=== PATIENT | male | born 1985 | race Caucasian/White ===

== ENCOUNTER 2020-05-05 00:43 | Emergency (ER) | payer OTHER ==
[2020-05-05 01:43] LABS: Absolute Lymphocytes (CBC) 4.6 K/uL (0.7-4.9); Basophils % 0.8 % (0-1.3); Lymphocytes % 34.2 % (15.3-44.8); MPV 9.9 fL (7.6-11.3)
[2020-05-05] MEDS ORDERED: KETOROLAC 30 MG/ML INJ ONE (01:56)
[2020-05-05 02:01] LABS: ALT/SGPT 74 U/L (12-78); AST/SGOT 93 U/L (15-37); Albumin 3.9 g/dL (3.4-5.0); Alkaline Phosphatase 77 U/L (45-117); BUN Blood Urea Nitrogen 13 mg/dL (7-18); Bicarbonate 27 mmol/L (21-32); Bilirubin Direct 0.1 mg/dL (0-0.2); Bilirubin Total 0.2 mg/dL (0.2-1.0); Glucose Level 96 mg/dL (74-106); Magnesium 2.2 mg/dL (1.8-2.4); NT PRO-BNP 9 pg/mL (<125); Potassium 3.3 mmol/L (3.5-5.1); Protein, Total 7.8 g/dL (6.4-8.2); Sodium Level 142 mmol/L (136-145); Troponin (Emerg Dept Use Only) < 0.02 ng/mL (0.0-0.045)
[2020-05-05 02:33] LABS: Barbiturates NEGATIVE (NEGATIVE); Benzodiazepines NEGATIVE (NEGATIVE); Cocaine NEGATIVE (NEGATIVE); METHAMPHETAM NEGATIVE (NEGATIVE); Methadone NEGATIVE (NEGATIVE); Opiates NEGATIVE (NEGATIVE); Phencyclidine NEGATIVE (NEGATIVE); THC Cannibis POSITIVE (NEGATIVE)
--- NOTE | 2020-05-05 02:54 | ER ---
Nurse's Notes [facility] Name: Nehemiah Ling Age: 34 yrs Sex: Male : 1985 Arrival Date: 05/05/2020 Time: 00:52 Bed 13 Private MD: Diagnosis: Dyspnea;Other chest pain Presentation: 05/05 00:52 Chief complaint: Patient states: about 15 to 20 mins ago he started having back pain bb which radiated to his chest and now he is having difficulty breathing. Coronavirus screen: At this time, the client does not indicate any symptoms associated with coronavirus-19. Ebola Screen: No symptoms or risks identified at this time. Initial Sepsis Screen: Does the patient meet any 2 criteria? No. Patient's initial sepsis screen is negative. Does the patient have a suspected source of infection? No. Patient's initial sepsis screen is negative. Risk Assessment: Do you want to hurt yourself or someone else? Patient reports no desire to harm self or others. Onset of symptoms was May 05, 2020. 00:52 Method Of Arrival: Ambulatory bb 00:52 Acuity: LANEY 3 bb Triage Assessment: 01:00 General: Appears in no apparent distress. uncomfortable, Behavior is calm, cooperative, vc appropriate for age. Respiratory: Reports shortness of breath at rest the patient has mild shortness of breath. Historical: - Allergies: 00:54 No Known Allergies; bb - Home Meds: 00:54 sertraline oral oral [Active]; bb - PMHx: 00:54 Anxiety; bb - PSHx: 00:54 Knee surgery; bb - Immunization history:: Adult Immunizations up to date. - Social history:: Smoking status: Patient denies any tobacco usage or history of. Patient uses alcohol, occasionally. street drugs, cocaine, LSD, marijuana. Screenin:00 Abuse screen: Denies threats or abuse. Nutritional screening: No deficits noted. vc Tuberculosis screening: No symptoms or risk factors identified. Fall Risk None identified. Assessment: 01:00 Pain: Complains of pain in chest Pain does not radiate. Pain currently is 10 out of 10 vc on a pain scale. Quality of pain is described as sharp, stabbing, Pain began suddenly, Is continuous, Alleviated by medications. Neuro: Level of Consciousness is awake, alert, obeys commands, Oriented to person, place, time, situation, Appropriate for age. Cardiovascular: Rhythm is sinus rhythm. Respiratory: Airway is patent Respiratory effort is even, unlabored, Breath sounds are clear. GI: No signs and/or symptoms were reported involving the gastrointestinal system. : No signs and/or symptoms were reported regarding the genitourinary system. Derm: Skin is intact, is healthy with good turgor, Skin temperature is warm. Musculoskeletal: Circulation, motion, and sensation intact. Range of motion: intact in all extremities. 02:32 Reassessment: Patient states the pain is still there but is better. vc 03:00 Reassessment: Patient and/or family updated on plan of care and expected duration. Pain vc level reassessed. Patient is alert, oriented x 3, equal unlabored respirations, skin warm/dry/pink. Patient states symptoms have improved. Vital Signs: 00:52 BP 132 / 82; Pulse 74; Resp 16 S; Temp 98.2(O); Pulse Ox 100% on R/A; Weight 102.97 kg bb (R); Height 6 ft. 3 in. (190.50 cm) (R); Pain 10/10; 02:00 BP 116 / 79; Pulse 74; Resp 16; Pulse Ox 96% on R/A; vc 03:00 BP 110 / 64; Pulse 72; Resp 17; Pulse Ox 96% on R/A; vc 00:52 Body Mass Index 28.37 (102.97 kg, 190.50 cm) bb ED Course: 00:52 Patient arrived in ED. bp1 00:54 Triage completed. bb 00:54 Arm band placed on Patient placed in an exam room, on a stretcher, on pulse oximetry. bb EKG completed in triage. Results shown to MD. 01:00 Patient has correct armband on for positive identification. Bed in low position. vc curve saw operator on. Pulse ox on. NIBP on. 01:10 Bernarda Hadley RN is Primary Nurse. vc 01:35 Justin Dee MD is Attending Physician. tw4 01:45 XRAY Chest (1 view) In Process Unspecified. EDMS 03:22 No provider procedures requiring assistance completed. IV discontinued, intact, vc bleeding controlled, No redness/swelling at site. Pressure dressing applied. Administered Medications: 01:45 Drug: TORadol 30 mg Route: IVP; Site: right antecubital; vc 02:06 Follow up: Response: No adverse reaction; Pain is decreased vc Outcome: 02:53 Discharge ordered by MD. briceno 03:23 Discharged to home ambulatory. vc 03:23 Condition: improved 03:23 Discharge instructions given to patient, family, Instructed on discharge instructions, follow up and referral plans. Demonstrated understanding of instructions, follow-up care. 03:24 Patient left the ED. vc Signatures: Dispatcher [employer] Analy [place] RN RN bb Wadley, Terrence, MD MD tw4 Bernarda Hadley RN RN vc [place], Brittany [facility]
--- NOTE | 2020-05-05 02:54 | EDPHYS ---
Physician Documentation [facility] Name: Nehemiah Ling Age: 34 yrs Sex: Male : 1985 Arrival Date: 05/05/2020 Time: 00:52 Bed 13 Private MD: ED Physician Justin Dee HPI: 05/05 05:15 This 34 yrs old Male presents to ER via Ambulatory with complaints of tw4 Breathing Difficulty. 05:15 The patient has shortness of breath at rest. Onset: The symptoms/episode began/occurred tw4 today. Duration: The symptoms are continuous, and are unchanged since they started. The patient's shortness of breath has no apparent modifying factors. Associated signs and symptoms: Pertinent positives: chest pain. Severity of symptoms: in the emergency department the symptoms are unchanged. The patient has not experienced similar symptoms in the past. Historical: - Allergies: 00:54 No Known Allergies; bb - Home Meds: 00:54 sertraline oral oral [Active]; bb - PMHx: 00:54 Anxiety; bb - PSHx: 00:54 Knee surgery; bb - Immunization history:: Adult Immunizations up to date. - Social history:: Smoking status: Patient denies any tobacco usage or history of. Patient uses alcohol, occasionally. street drugs, cocaine, LSD, marijuana. ROS: 05:15 Constitutional: Negative for fever, chills, and weight loss, Eyes: Negative for injury, tw4 pain, redness, and discharge, Abdomen/GI: Negative for abdominal pain, nausea, vomiting, diarrhea, and constipation, Back: Negative for injury and pain, MS/Extremity: Negative for injury and deformity, Skin: Negative for injury, rash, and discoloration. 05:15 Cardiovascular: Positive for chest pain, Negative for edema, orthopnea, palpitations. 05:15 Respiratory: Positive for shortness of breath, Negative for cough, dyspnea on exertion, hemoptysis, orthopnea, pleurisy. Exam: 05:15 Constitutional: This is a well developed, well nourished patient who is awake, alert, tw4 and in no acute distress. Head/Face: Normocephalic, atraumatic. Chest/axilla: Normal chest wall appearance and motion. Nontender with no deformity. No lesions are appreciated. Cardiovascular: Regular rate and rhythm with a normal S1 and S2. No gallops, murmurs, or rubs. Normal PMI, no JVD. No pulse deficits. Respiratory: Lungs have equal breath sounds bilaterally, clear to auscultation and percussion. No rales, rhonchi or wheezes noted. No increased work of breathing, no retractions or nasal flaring. Abdomen/GI: Soft, non-tender, with normal bowel sounds. No distension or tympany. No guarding or rebound. No evidence of tenderness throughout. Back: No spinal tenderness. No costovertebral tenderness. Full range of motion. MS/ Extremity: Pulses equal, no cyanosis. Neurovascular intact. Full, normal range of motion. Neuro: Awake and alert, GCS 15, oriented to person, place, time, and situation. Cranial nerves II-XII grossly intact. Motor strength 5/5 in all extremities. Sensory grossly intact. Cerebellar exam normal. Normal gait. Vital Signs: 00:52 BP 132 / 82; Pulse 74; Resp 16 S; Temp 98.2(O); Pulse Ox 100% on R/A; Weight 102.97 kg bb (R); Height 6 ft. 3 in. (190.50 cm) (R); Pain 10/10; 02:00 BP 116 / 79; Pulse 74; Resp 16; Pulse Ox 96% on R/A; vc 03:00 BP 110 / 64; Pulse 72; Resp 17; Pulse Ox 96% on R/A; vc 00:52 Body Mass Index 28.37 (102.97 kg, 190.50 cm) bb MDM: 01:35 Patient medically screened. tw4 05:15 Differential diagnosis: Anemia Anxiety Reaction reactive airway disease, Sepsis. tw4 Antibiotic administration: Not indicated. Data reviewed: vital signs, nurses notes. Data interpreted: Pulse oximetry: Interpretation: normal. Counseling: I had a detailed discussion with the patient and/or guardian regarding: the historical points, exam findings, and any diagnostic results supporting the discharge/admit diagnosis, lab results. Medication response: Toradol markedly relieved the patient's pain. Response to treatment: and as a result, I will discharge patient. Special discussion: Based on the patient's history, exam, and Dx evaluation, there is no indication for emergent intervention or inpatient Tx. It is understood by the patient/guardian that if the Sx's persist or worsen they need to return immediately for re-evaluation. I discussed with the patient/guardian in detail that at this point there is no indication for admission to the hospital. It is understood, however, that if the symptoms persist or worsen the patient needs to return immediately for re-evaluation. 05/05 01:27 Order name: Basic Metabolic Panel tt3 05/05 01:27 Order name: CBC with Diff 3 05/05 01:27 Order name: LFT's 05/05 01:27 Order name: Magnesium tt3 05/05 01:27 Order name: NT PRO-BNP tt05/05 01:27 Order name: PT-INR tt3 05/05 01:27 Order name: Troponin (emerg Dept Use Only) tt3 05/05 01:27 Order name: XRAY Chest (1 view) tt3 05/05 01:27 Order name: EKG; Complete Time: 01:28 tt05/05 01:35 Order name: D-Dimer tw4 05/05 01:36 Order name: D-Dimer EDLA 05/05 01:38 Order name: UDS 4 05/05 01:27 Order name: Cardiac monitoring; Complete Time: 01:29 05/05 01:27 Order name: EKG - Nurse/Tech; Complete Time: 01:05/05 01:27 Order name: IV Saline Lock; Complete Time: 01:05/05 01:27 Order name: Labs collected and sent; Complete Time: 01:05/05 01:27 Order name: O2 Per Protocol; Complete Time: :05/05 01:27 Order name: O2 Sat Monitoring; Complete Time: : tt EC:54 Rate is 72 beats/min. Rhythm is regular. QRS [place] is Normal. MS interval is normal. QRS tw4 interval is normal. QT interval is normal. No Q waves. T waves are Normal. No ST changes noted. Clinical impression: Normal ECG. Interpreted by me. Reviewed by me. Administered Medications: 01:45 Drug: TORadol 30 mg Route: IVP; Site: right antecubital; vc 02:06 Follow up: Response: No adverse reaction; Pain is decreased vc Disposition: 05/05/20 02:53 Discharged to Home. Impression: Dyspnea, Other chest pain. - Condition is Stable. - Discharge Instructions: Nonspecific Chest Pain, Shortness of Breath. - Medication Reconciliation Form, Thank You Letter, Antibiotic Education, Prescription Opioid Use form. - Follow up: Private Physician; When: Upon discharge from the Emergency Department; Reason: Recheck today's complaints, Continuance of care, Re-evaluation by your physician. - Problem is new. - Symptoms have improved. Signatures: Dispatcher [employer] [facility] Analy Bridges RN RN bb Justin Dee MD MD tw4 Bernarda Hadley RN RN vc [place], Reji tt3 Corrections: (The following items were deleted from the chart) 01:46 01:25 Chest Pa And Lat (2 Views)+[email or web address] ordered. [facility] 03:24 02:53 05/05/2020 02:53 Discharged to Home. Impression: Dyspnea; Other chest pain. vc Condition is Stable. Forms are Medication Reconciliation Form, Thank You Letter, Antibiotic Education, Prescription Opioid Use. Follow up: Private Physician; When: Upon discharge from the Emergency Department; Reason: Recheck today's complaints, Continuance of care, Re-evaluation by your physician. Problem is new. Symptoms have improved. tw4
--- NOTE | 2020-05-05 09:19 | RAD REPORT ---
EXAM DESCRIPTION: RAD - Chest Single View - 05/05/2020 1:45 am CLINICAL HISTORY: CHEST PAIN Chest pain. COMPARISON: No comparisons FINDINGS: Portable technique limits examination quality. The lungs are grossly clear. The heart is normal in size. No displaced fractures. IMPRESSION: No acute intrathoracic process suspected.
[2020-05-06 06:45] VITALS: TEMP 98.2
[2020-05-06 06:47] VITALS: O2SAT 96
[2020-05-06 06:48] VITALS: BP 110/64
--- NOTE | 2020-05-08 20:05 | EKG ---
Test Date: 2020-05-05 Test Time: 00:50:04 Heeler: MEASUREMENT RESULTS: Intervals: Rate: 72 IA: 154 QRSD: 102 QT: 392 QTc: 429 [place]: P: 51 IA: 154 QRS: 81 T: 62 INTERPRETIVE STATEMENTS: Normal sinus rhythm Normal ECG No previous ECG available for comparison Electronically Signed On 05-08-20 19:59:51 CDT by Carlitos Espinoza
== END 2020-05-05 03:24 | disposition home or self-care (01) ==
LOC: ER 00:43
DX: R07.89 Other chest pain (principal); F41.9 Anxiety disorder, unspecified
CPT/HCPCS: 36415; 71045; 80048; 80076; 80307; 83735; 83880; 84484; 85025; 85379; 85610; 93005; 96374; 99284